=== PATIENT | male | born 1945 | race Caucasian/White ===

== ENCOUNTER 2016-09-13 10:18 | Inpatient (IN) ==
[2016-09-13] MEDS ORDERED: HEPARIN IV PRN (10:38)
[2016-09-13] MEDS ORDERED: NS 2,000 ML MISC PRN (10:38)
[2016-09-13] MEDS ORDERED: TIGHT: 0.2 ML/HR MISC PRN (10:38)
[2016-09-13] MEDS ORDERED: APRESOLINE IV PRN (11:51)
[2016-09-13] MEDS ORDERED: NEXIUM PO PRN (11:52)
[2016-09-13] MEDS ORDERED: SUBCUTANEOUS INSULIN PUMP SUBQ SCH (12:00)
[2016-09-13] MEDS ORDERED: HEPARIN ONE (12:22)
[2016-09-13] MEDS ORDERED: NS 2,000 ML ONE (12:22)
[2016-09-13] MEDS ORDERED: NORCO-10 ONE (15:18)
[2016-09-13] MEDS: NORCO-10 PO PRN ×2 (15:20→23:44)
--- NOTE | 2016-09-13 15:34 | CONSULTATION ---
DATE OF CONSULTATION: 09/13/2016 REASON FOR CONSULTATION: Assistance with management. HISTORY OF PRESENT ILLNESS: Mr. Malik is a 71-year-old man who is followed by Dr. Phan. He has diabetes, hypertension, end stage kidney disease, obesity, history of nephrotic syndrome. He has recently had a peritoneal dialysis catheter placed and is starting his training. He came to see Dr. Phan today with myalgias, weakness, fatigue, shortness of breath in prostration. He was admitted to the hospital with a presumed viral syndrome. We will continue his dialysis while he is in the hospital. PAST MEDICAL HISTORY: Diabetes, obesity, hypertension, gout, hyperlipidemia. HOME MEDICATIONS: Allopurinol, aspirin, atorvastatin, esomeprazole, hydralazine, hydrocodone, niacin, insulin, prednisone. ALLERGIES: Losartan. SOCIAL HISTORY: He is and lives with his in the [facility]. FAMILY HISTORY: Noncontributory. REVIEW OF SYSTEMS: Noncontributory. PHYSICAL EXAMINATION: Blood pressure is 146/71, heart rate 59, respirations 23, afebrile. General: He is an elderly man lying on his left side, in no distress. Skin is warm and dry. Conjunctivae are pink. Neck veins are not distended. Heart is regular. Lungs have equal breath sounds, no crackles. Abdomen is soft, nontender. Bowel sounds are present. Extremities have 2+ edema. No clubbing or cyanosis. IMPRESSION: 1. End stage kidney disease. We will perform his routine hemodialysis today to address his volume status, 2 potassium bath. Reportedly hyperkalemic in Dr. Phan's office. 2. Hypertension. He is on his routine home medications. We will reassess after his volume status is improved. cc: MD Tian Rider MD
[2016-09-13 16:59] LABS: ALBUMIN 3.1 g/dL (3.5-5.0); CALCIUM 8.3 mg/dL (8.8-10.2); POTASSIUM 4.5 mmol/L (3.5-5.1)
[2016-09-13] MEDS ORDERED: CATAPRES PO ONE (17:15)
[2016-09-13] MEDS ORDERED: CATAPRES PO PRN (18:31)
[2016-09-13] MEDS: APRESOLINE PO SCH ×2 (18:36→18:40)
[2016-09-13] MEDS: HUMULIN R SUBQ SCH ×2 (18:41→22:38)
[2016-09-13] MEDS ORDERED: PATIENT'S OWN MED PO SCH (21:00)
[2016-09-13] MEDS: BYSTOLIC PO SCH (22:35)
[2016-09-13] MEDS: LIPITOR PO SCH (22:35)
[2016-09-14] MEDS ORDERED: CATAPRES PO ONE (05:44)
[2016-09-14] MEDS: ZOFRAN PO PRN ×2 (05:51→11:44)
[2016-09-14] MEDS: NORCO-10 PO PRN ×3 (05:54→16:55)
[2016-09-14] MEDS: HUMULIN R SUBQ SCH ×4 (06:27→21:50)
--- NOTE | 2016-09-14 06:27 | HISTORY AND PHYSICAL ---
CHIEF COMPLAINT: Not feeling well, flu-like symptoms since Friday. HISTORY OF PRESENT ILLNESS: He is a 70-year-old, white gentleman, with a known history of end- stage kidney disease on hemodialysis in [place] by Dr. Cisneros. Apparently he skipped dialysis on Friday after 1 hour. He is feeling bad. He came to my office today with dyspnea on exertion, PND, orthopnea or cough. No fever. Blood pressure is so high. Flu screening was negative. Chest x-ray revealed congestive heart failure with bilateral pleural effusions. Potassium of 7. Elevation of BUN and creatinine. He is also slowly trying to swap the dialysis through the CAPD. I discussed this with Dr. Stanford and he has been admitted to the hospital for dialysis for hyperkalemia, CHF and to control the blood pressure. Patient is refusing IV access and as a result hospital admission was warranted. He denies any chest pain. PAST MEDICAL HISTORY: Right bundle branch block, kidney stones, end-stage kidney disease on dialysis, type 2 diabetes on pump, hypertension, temporal arteritis, gout, hyperlipidemia, prostate cancer, sleep apnea. PAST SURGICAL HISTORY: DNS repair, melanoma excision from the neck, status post lithotripsy, radical prostatectomy, right rotator cuff repair, right carpal tunnel syndrome, right big toe partial amputation, hammertoe repair of the left foot, left cataract surgery, AV fistula on the right forearm, also had AV fistula in the left arm, also had a tunnel catheter on the left side, also had a CAPD catheter, right carotid surgery. MEDICATIONS: Prednisone 10 mg daily, Nexium 40 daily, Niaspan 1000 mg daily, gabapentin 300 daily, aspirin 81 mg daily, allopurinol 300 daily, subcutaneous insulin pump, vitamin D 50,000 once a week, Lipitor 40 daily, Bystolic 40 mg b.i.d., hydralazine 100 t.i.d., loratadine 10 daily. ALLERGIES: Not known. SOCIAL HISTORY: with 3 children. Living in [place]. No smoking. No alcohol. Retired. FAMILY HISTORY: Father of heart attack at 76. Mom 90 years old. HEALTH MAINTENANCE: Flu vaccine 2015, tetanus 2015, pneumonia 2010, colonoscopy 2012. REVIEW OF SYSTEMS: HEENT: No headache. No vision problem. No earache. No sore throat. Coughing. Neck: No goiter. No lymphadenopathy. Right carotid surgery done. He also had parotid swelling that is improving. Cardiopulmonary: Cough, shortness of breath, wheezing. No chest pain. No swelling of feet. Gastrointestinal: No nausea, vomiting, abdominal pain. Genitourinary: No history of hesitancy, frequency, dysuria. Musculoskeletal: No back pain. Skin: No skin rashes. Neurologic: No focal symptoms or weakness. EXAMINATION: Vital Signs: Afebrile. Blood pressure 240/70, pulse 59, 6 feet tall, 233 pounds. HEENT: Atraumatic, normocephalic. Pupils equal and reactive to light. TMs are normal. Slight right parotid swelling noted. Neck: Supple. No lymphadenopathy. Status post right carotid surgery. Chest: Clear to auscultation. Heart: Sounds are regular. Abdomen: Belly is soft, nontender. CAPD catheter present. Tunnel catheter present on the left side of the chest. Rectal: Deferred. Extremities: No peripheral edema or cyanosis. Neurologic Examination: No obvious deficits. INVESTIGATIONS: In my office CBC is normal, SMA 7, potassium 6.8, BUN 6, creatinine 8.6. Chest x-ray: Bilateral pleural effusion. ASSESSMENT AND PLAN: 1. A 71-year-old white gentleman admitted to the hospital basically for congestive heart failure, hypertension due to skipping the dialysis. Plan is emergency dialysis for congestive heart failure as well as hyperkalemia. Dr. Stanford consulted. 2. Hypertension, not able to control. Continue on hydralazine 100 p.o. t.i.d. and clonidine as needed. 3. Temporal arteritis. Check the sedimentation rate. Increase the prednisone to 10 mg daily. If it is high, we will give a loading dose of steroids. 4. Gout, on allopurinol. 5. Hyperlipidemia, on Lipitor. 6. Acid reflux disease, on Nexium. 7. Hyperlipidemia, on niacin and Lipitor. 8. Type 2 diabetes, on insulin pump. Follow up on sliding scale. 9. Repeat chest x-ray and laboratory workup. 10. We will follow up. cc: Tian Phan MD
[2016-09-14 07:37] LABS: MANUAL DIFF NEEDED? NO
[2016-09-14 07:55] LABS: BASO% 0.6 % (0.0-0.8); EOS# 0.27 X1000 (0.0-0.7); EOS% 2.8 % (0.0-10.0); HEMATOCRIT 29.7 % (42.0-52.0); HEMOGLOBIN 9.8 g/dL (14.0-18.0); IMM GRAN# 0.06 X1000 (0.0-0.04); IMM GRAN% 0.6 % (0.0-0.5); LYMPH# 1.95 X1000 (1.2-3.4); LYMPH% 20.3 % (20.5-51.1); MCH 32.1 PG (27-31); MCV 97.4 FL (81-99); MONO# 0.64 X1000 (0.11-0.59); MONO% 6.7 % (1.7-9.3); MPV 9.9 FL (7.4-10.4); PLT 285 X1000 (130-400); RBC 3.05 XMIL (4.7-6.1)
[2016-09-14 08:07] LABS: POTASSIUM 5.4 mmol/L (3.5-5.1)
[2016-09-14 08:16] LABS: HEMOGLOBIN A1C 9.4 % (4.8-6.0)
[2016-09-14] MEDS ORDERED: PREDNISONE PO SCH (09:00)
[2016-09-14 09:04] LABS: SED RATE 59 mm/hr (0-15)
[2016-09-14] MEDS ORDERED: NORVASC PO ONE (09:21)
--- NOTE | 2016-09-14 09:22 | Diag Imaging Result Document ---
PROCEDURE NAME: CHEST-1 VIEW - 09/14/2016 PORTABLE CHEST X-RAY: COMPARISON: 12/09/2015. FINDINGS: Stable left dialysis catheter. Stable retrocardiac opacity obscuring the left hemidiaphragm. No new infiltrates. Heart size and pulmonary vascularity are normal. IMPRESSION: No change from prior.
[2016-09-14] MEDS ORDERED: CATAPRES PO PRN (09:30)
[2016-09-14] MEDS: ZYLOPRIM PO SCH (09:30)
[2016-09-14] MEDS: BYSTOLIC PO SCH ×2 (09:30→21:49)
[2016-09-14] MEDS: APRESOLINE PO SCH ×4 (09:30→19:12)
[2016-09-14] MEDS: ASPIRIN EC PO SCH (09:31)
[2016-09-14] MEDS: NIASPAN PO SCH (09:31)
--- NOTE | 2016-09-14 11:23 | PROGRESS NOTE ---
DATE: 09/14/2016 SUBJECTIVE: The patient complains of pronounced headache and some nausea. He is scheduled for dialysis per Dr. Stanford later today. OBJECTIVE: Afebrile, pulse 82, blood pressure 230/60, O2 saturation on room air 97% to 99%. Cardiovascular: Regular rate and rhythm. Lungs: CTA. Extremities: No calf tenderness, cords or edema. DIAGNOSTIC DATA: Labs show sodium 135, potassium 5.4, chloride 96, CO2 of 24, BUN of 48, creatinine 0.7, glucose 132 and ranging 84 to 316 so far during the hospitalization. Calcium is 8.0. ProBNP is greater than 35,000. White count is 9.6, hemoglobin 9.8, platelets 285, neutrophils 69, lymphocytes 20. ASSESSMENT: 1. Congestive heart failure/fluid overload related to the patient skipping his dialysis. 2. Uncontrolled hypertension. 3. Temporal arteritis with sedimentation rate in the 59 range. 4. Gout. 5. Hyperlipidemia. 6. Gastroesophageal reflux disease. 7. Insulin-dependent diabetes mellitus on insulin pump. 8. End stage renal disease, on hemodialysis per Dr. Stanford. PLAN: He is on Bystolic at 10 mg b.i.d. and hydralazine 100 mg t.i.d. We will continue those and add scheduled clonidine and add Norvasc at 5 mg daily. Consideration for nitroglycerin if not improved later today in regard to BP. We will adjust his prednisone from 10 to 20 mg daily, monitoring his blood sugars closely with SSI as required. Dr. Stanford is handling his renal dialysis. We will follow. cc: MD Tian Alvarez MD
[2016-09-14] MEDS ORDERED: EPOGEN SUBQ ONE (14:10)
--- NOTE | 2016-09-14 14:31 | PROGRESS NOTE ---
DATE: 09/14/2016 SUBJECTIVE: He has had nausea and vomiting today. No diarrhea. Fever is improved. OBJECTIVE: Vital Signs: Blood pressure 230/60, heart rate 82, respirations 16, afebrile. Generally: He is an elderly man, sitting erect, no distress. Skin: Warm and dry. HEENT: Conjunctivae are pink. Neck: Neck veins are not distended. Trachea is midline. Heart: Regular without gallops. Lungs: Have equal breath sounds. No crackles or wheezes. Abdomen: Soft, nontender. Bowel sounds are present. Extremities: Have trace edema. No clubbing or cyanosis. LABORATORY DATA: Sodium 135, potassium 5.4, chloride 96, bicarbonate 24, BUN 48, creatinine 4.7. IMPRESSION: 1. End-stage kidney disease. Appears euvolemic. No indications for dialysis. 2. Electrolytes: Potassium is mildly elevated. Observe. 3. Acid-base in target. 4. Anemia. Hemoglobin is below target. We will check iron stores. We will give 1 dose of erythropoietin. cc: MD Tian Rider MD
[2016-09-14] MEDS: COMPAZINE PO PRN (16:55)
[2016-09-14 18:37] LABS: BASO% 0.3 % (0.0-0.8); HEMATOCRIT 34.4 % (42.0-52.0); HEMOGLOBIN 11.4 g/dL (14.0-18.0); IMM GRAN# 0.05 X1000 (0.0-0.04); IMM GRAN% 0.5 % (0.0-0.5); LYMPH# 0.68 X1000 (1.2-3.4); MANUAL DIFF NEEDED? YES; MCH 32.1 PG (27-31); MCHC 33.1 g/dL (33-37); MCV 96.9 FL (81-99); MONO# 0.08 X1000 (0.11-0.59); MONO% 0.8 % (1.7-9.3); MPV 9.6 FL (7.4-10.4); NEUT% 91.4 % (42.2-75.2); PLT 351 X1000 (130-400); RBC 3.55 XMIL (4.7-6.1)
[2016-09-14 18:46] LABS: LYMPHS 5 % (21-51); MONO 1 % (1-9)
[2016-09-14 18:53] LABS: ALBUMIN 3.4 g/dL (3.5-5.0); CALCIUM 8.8 mg/dL (8.8-10.2); POTASSIUM 6.2 mmol/L (3.5-5.1); TOTAL BILIRUBIN 0.25 mg/dL (0.20-1.00); TOTAL PROTEIN 6.3 g/dL (6.3-8.3)
[2016-09-14] MEDS ORDERED: KAYEXALATE PR ONE (19:01)
[2016-09-14] MEDS: LIPITOR PO SCH (21:49)
[2016-09-15] MEDS: HUMULIN R SUBQ SCH ×4 (06:10→21:11)
[2016-09-15 07:06] LABS: MANUAL DIFF NEEDED? NO
[2016-09-15 07:34] LABS: BASO% 0.4 % (0.0-0.8); EOS# 0.08 X1000 (0.0-0.7); EOS% 1.1 % (0.0-10.0); HEMATOCRIT 28.4 % (42.0-52.0); HEMOGLOBIN 9.3 g/dL (14.0-18.0); IMM GRAN# 0.02 X1000 (0.0-0.04); IMM GRAN% 0.3 % (0.0-0.5); LYMPH# 1.75 X1000 (1.2-3.4); LYMPH% 24.9 % (20.5-51.1); MCH 31.7 PG (27-31); MCHC 32.7 g/dL (33-37); MCV 96.9 FL (81-99); MONO# 0.39 X1000 (0.11-0.59); MONO% 5.5 % (1.7-9.3); MPV 9.9 FL (7.4-10.4); NEUT% 67.8 % (42.2-75.2); PLT 269 X1000 (130-400); RBC 2.93 XMIL (4.7-6.1)
[2016-09-15 07:44] LABS: CALCIUM 8.4 mg/dL (8.8-10.2); POTASSIUM 5.5 mmol/L (3.5-5.1)
[2016-09-15 07:55] LABS: FERRITIN 733 ng/mL (30-400)
[2016-09-15] MEDS ORDERED: PREDNISONE PO SCH (09:00)
[2016-09-15] MEDS: NIASPAN PO SCH (09:55)
[2016-09-15] MEDS: ASPIRIN EC PO SCH (09:55)
[2016-09-15] MEDS: NORVASC PO SCH (09:55)
[2016-09-15] MEDS: APRESOLINE PO SCH ×3 (09:55→21:10)
[2016-09-15] MEDS: PREDNISONE PO SCH (09:55)
[2016-09-15] MEDS: BYSTOLIC PO SCH ×2 (09:55→21:10)
[2016-09-15] MEDS: ZYLOPRIM PO SCH (09:55)
--- NOTE | 2016-09-15 10:08 | PROGRESS NOTE ---
DATE: 09/15/2016 SUBJECTIVE: The patient is doing better today. He had prominent nausea and vomiting and some abdominal pain yesterday and seemed to respond to Kayexalate rectally. Again, feeling better today. No significant abdominal pain. No nausea. OBJECTIVE: Vital Signs: Afebrile. Blood pressure 184/41, pulse 64, O2 saturation room air 95- 97%. CV: RRR. Lungs: CTA. Abdomen: Protuberant, soft. No pinpoint tenderness. Extremities: No calf tenderness, cords, or edema. Labs: Show a white count of 7, hemoglobin of 9.3, platelets 269,000. Sodium 135, potassium 5.5 today down from 6.2 last evening after Kayexalate, CO2 23, BUN 57, creatinine 5.6. Iron 104, TIBC 155, ferritin 733. LFTs last evening okay. Amylase and lipase okay. B12 high at 902, folate 18.7. ASSESSMENT: 1. Nausea and vomiting, thought related to hyperkalemia, improved after Kayexalate x1. 2. End-stage renal disease, on hemodialysis on Mondays, Wednesdays, and Fridays. 3. Anemia of chronic disease, treated with erythropoietin per Dr. Stanford. 4. Hypertension. 5. Temporal arteritis. 6. Gout. 7. Hyperlipidemia. 8. Gastroesophageal reflux disease. 9. Insulin-dependent diabetes mellitus, on an insulin pump. PLAN: Continue antihypertensives to include clonidine, Bystolic, Norvasc. We will monitor the 5.5 potassium today but if that worsens or if symptoms worsen, would repeat the Kayexalate. He is scheduled for his next dialysis tomorrow per Dr. Stanford. We have bumped his prednisone up from 10 to 20 mg daily due to elevated sedimentation rate and his temporal arteritis. Headaches were not mentioned today so that is a good sign. Continue blood sugar monitoring and SSI. cc: MD Tian Alvarez MD
--- NOTE | 2016-09-15 11:50 | Diag Imaging Result Document ---
PROCEDURE NAME: FLAT/UPRIGHT ABD/1 VIEW CHEST - 09/14/2016 FRONTAL CHEST WITH 2 VIEWS OF THE ABDOMEN AT 1740 HOURS: COMPARISON: 0500 hours. FINDINGS: Stable left dialysis catheter in good position. Stable cardiomegaly. Pulmonary vascularity is normal. There is a small left basilar pleural effusion. There is apparent peritoneal dialysis catheter tubing coiled in the pelvis. No bowel obstruction or free air. IMPRESSION: 1. Mild cardiomegaly. 2. Stable small left basilar pleural effusion. 3. No acute abnormality in the abdomen.
[2016-09-15] MEDS: LIPITOR PO SCH (21:10)
[2016-09-16] MEDS: COMPAZINE PO PRN (00:04)
[2016-09-16] MEDS ORDERED: KAYEXALATE PR ONE (00:52)
--- NOTE | 2016-09-16 05:58 | EKG Report ---
Test Performed on : 09/14/2016 05:51:36 AM Test Reason : cp Blood Pressure : / mmHG Vent. Rate : 071 BPM Atrial Rate : 071 BPM P-R Int : 204 ms QRS Dur : 150 ms QT Int : 466 ms P-R-T Axes : 039 129 016 degrees QTc Int : 506 ms Normal sinus rhythm. with sinus arrhythmia. Indeterminate axis Right bundle branch block Abnormal ECG When compared with ECG of 14-MAR-2016 08:23, ND interval has decreased Confirmed by Treasure GUTIERREZ, Piyush Millan ([id number]) on 09/16/2016 7:46:06 PM
[2016-09-16] MEDS: HUMULIN R SUBQ SCH ×4 (06:31→22:54)
[2016-09-16 06:38] LABS: MANUAL DIFF NEEDED? NO
[2016-09-16 07:09] LABS: BASO% 0.3 % (0.0-0.8); EOS# 0.01 X1000 (0.0-0.7); EOS% 0.1 % (0.0-10.0); HEMATOCRIT 28.2 % (42.0-52.0); HEMOGLOBIN 9.1 g/dL (14.0-18.0); IMM GRAN# 0.07 X1000 (0.0-0.04); IMM GRAN% 0.8 % (0.0-0.5); LYMPH# 1.84 X1000 (1.2-3.4); LYMPH% 21.2 % (20.5-51.1); MCH 31.7 PG (27-31); MCHC 32.3 g/dL (33-37); MCV 98.3 FL (81-99); MONO# 0.44 X1000 (0.11-0.59); MONO% 5.1 % (1.7-9.3); NEUT% 72.5 % (42.2-75.2); PLT 261 X1000 (130-400); RBC 2.87 XMIL (4.7-6.1)
[2016-09-16 07:46] LABS: CALCIUM 8.4 mg/dL (8.8-10.2)
[2016-09-16] MEDS ORDERED: NS 2,000 ML MISC PRN (07:48)
[2016-09-16] MEDS ORDERED: HEPARIN IV PRN (07:48)
[2016-09-16] MEDS ORDERED: TIGHT: 0.2 ML/HR MISC PRN (07:48)
[2016-09-16] MEDS ORDERED: HEPARIN ONE (07:59)
[2016-09-16] MEDS ORDERED: NS 2,000 ML ONE (07:59)
--- NOTE | 2016-09-16 10:56 | PROGRESS NOTE ---
DATE: 09/16/2016 SUBJECTIVE: Patient is sitting up in a chair, undergoing hemodialysis. He states that he began having a headache, and nausea and vomiting again last night. Currently, he is asymptomatic. OBJECTIVE: Vital Signs: Temperature 98.4 degrees, pulse 61, respiratory rate 16, blood pressure 156/38. Intake 480 mL. Output 480 mL. Physical Examination: General: Elderly gentleman sitting up in a chair, undergoing hemodialysis. He is in no acute distress. HEENT: Normocephalic, atraumatic. His oral mucosa is moist. Neck: Supple. No JVD. Cardiovascular: Regular rate and rhythm. There is no murmur or gallop appreciated. Pulmonary: He has equal excursion. He is clear bilaterally. Abdomen: Soft with positive bowel sounds. : Not inspected. He has minimal void with hemodialysis assist. Extremities: He has no clubbing, cyanosis, or edema. Integumentary: Skin is warm and dry without rash or lesion. He has a tunneled dialysis catheter noted in the right upper neck. Insertion site clean, dry, and intact. Lab Data: WBC of 8.6, hemoglobin 9.1. Sodium yesterday 135, potassium 5.5, CO2 23, BUN 57, creatinine 5.6, calcium 8.4. ASSESSMENT AND PLAN: 1. End-stage renal disease management. He is on his routine dialysis today. He is on a 2 K bath/UF to dry weight/3.5 hour treatment. 2. Electrolytes, acid-base balance, anemia. These are stable. Again, see above for plan. 3. Anemia. He has been given EPO. Continue to monitor. 4. Nausea and vomiting. Followed by primary. Seen, data reviewed, discussed with Srini Peraza on 09/16/16. I agree with the above assessment and plan of care. rg Dictated by EULALIO Goldberg for Arpan Stanford MD cc: MD Tian Rider MD MTDD
[2016-09-16 11:27] LABS: HEPATITIS PROFILE ACUTE SEE COMMENTS
[2016-09-16] MEDS: APRESOLINE PO SCH ×3 (13:00→17:22)
[2016-09-16] MEDS: NORVASC PO SCH (13:00)
[2016-09-16] MEDS: ASPIRIN EC PO SCH (13:00)
[2016-09-16] MEDS: ZYLOPRIM PO SCH (13:00)
[2016-09-16] MEDS: NIASPAN PO SCH (13:01)
[2016-09-16] MEDS: BYSTOLIC PO SCH ×2 (13:01→20:03)
[2016-09-16] MEDS: PREDNISONE PO SCH (13:01)
[2016-09-16] MEDS ORDERED: SOLU-MEDROL IM ONE (19:17)
[2016-09-16] MEDS ORDERED: KAYEXALATE PO ONE (19:19)
[2016-09-16] MEDS: NORCO-10 PO PRN (20:02)
[2016-09-16] MEDS: LIPITOR PO SCH (20:03)
--- NOTE | 2016-09-16 22:59 | PROGRESS NOTE ---
DATE: 09/16/2016 SUBJECTIVE: Interval history was reviewed. The patient refusing for an IV access. Blood pressures are running high. He also has a high potassium. Complains of headache and nausea. REVIEW OF SYSTEMS: No vision problem. No claudication symptoms, other than muscles of mastication.Neck: No goiter. No lymphadenopathy. Cardiopulmonary: No chest pain. Coughing when she lies down. No paroxysmal nocturnal dyspnea, no orthopnea, no swelling of feet. Gastrointestinal: No nausea, vomiting, or abdominal pain. He had a peritoneal catheter. PAST MEDICAL HISTORY: Were reviewed. PAST SURGICAL HISTORY: Were reviewed. MEDICINES: Were reviewed. PHYSICAL EXAMINATION: Vital Signs: Afebrile, blood pressure is 199/58, weight is 232 pounds. Patient was examined at dialysis machine. HEENT Examination: Within normal limits. Neck: Supple. No lymphadenopathy. Chest: Bilateral air entry. Cardiovascular: Heart sounds are regular. Abdomen: Belly is soft, nontender. Good bowel sounds. Extremities: No peripheral edema. INVESTIGATIONS: White cell count 8.6, hematocrit 28, platelets 261,000. SMA-7: Sodium 136, potassium 6.0, chloride 98, BUN 70, creatinine 6.8. Glucose 277. A1c 9.4. Iron 104. Pro-B-type natriuretic peptide 35,000. Sedimentation rate was 59. B12 9O2. Folate is normal. Hepatitis panel is negative. ASSESSMENT AND PLAN: 1. Congestive heart failure due to hypertension and heart disease, with a bilateral pleural effusion, improving after the dialysis. 2. Hypertension. Optimize the treatment with hydralazine, Norvasc, and Bystolic. Not able to tolerate HECTOR inhibitors, ARB due to hyperkalemia. 3. Headache and nausea, elevated sedimentation rate. Increased the prednisone. 4. Type 2 diabetes, on insulin pump. 5. Hyperlipidemia, on Lipitor. 6. Gout, on allopurinol. 7. Continue on the Kayexalate enema for hyperkalemia. If the symptoms do not improve, consider echocardiography and further workup. 8. End-stage renal disease on hemodialysis with a tunnel catheter on the left side. Patient is slowly trying to into CAPD down the line. cc: Tian Phan MD
[2016-09-16] MEDS: ZOFRAN PO PRN (23:20)
[2016-09-17] MEDS: NORCO-10 PO PRN (01:21)
[2016-09-17] MEDS: HUMULIN R SUBQ SCH (06:40)
[2016-09-17 07:40] VITALS: BP 174/57
[2016-09-17] MEDS: NORVASC PO SCH (08:45)
[2016-09-17] MEDS: NIASPAN PO SCH (08:45)
[2016-09-17] MEDS: APRESOLINE PO SCH (08:45)
[2016-09-17] MEDS: BYSTOLIC PO SCH (08:45)
[2016-09-17] MEDS: ASPIRIN EC PO SCH (08:46)
[2016-09-17] MEDS: PREDNISONE PO SCH (08:46)
[2016-09-17] MEDS ORDERED: ZYLOPRIM PO SCH (09:00)
--- NOTE | 2016-09-17 09:03 | PROGRESS NOTE ---
DATE: 09/17/2016 SUBJECTIVE: He is feeling well today. He anticipates discharge. No shortness of breath, nausea, fever, etc. OBJECTIVE: Vital Signs: Blood pressure 174/57, heart rate 65, respirations 20, afebrile. Intake 600 mL; output 1.5 L. General: On physical exam, no acute distress. Skin: Warm and dry. Eyes: Conjunctivae are pink. Neck: Neck veins are not distended. Heart: Regular. Lungs: Have equal breath sounds. No crackles. Abdomen: Soft and obese and nontender. Bowel sounds are present. Extremities: Have no edema, clubbing, or cyanosis. LABORATORY DATA: None today. IMPRESSION: 1. End-stage kidney disease. He is euvolemic. His next scheduled dialysis is tomorrow. 2. Electrolytes: He had moderate hyperkalemia yesterday, but he has received dialysis. 3. Acute febrile illness. Resolved. DISPOSITION: Okay for discharge. cc: MD Tian Rider MD
--- NOTE | 2016-09-17 22:38 | DISCHARGE SUMMARY ---
ADMISSION DATE: 09/13/2016 DISCHARGE DATE: 09/17/2016 DISCHARGING DIAGNOSES: 1. Congestive heart failure due to diastolic dysfunction with hypertension, heart disease. 2. Right bundle branch block. 3. Uncontrolled hypertension. 4. Uncontrolled diabetes A1c 9.3. 5. Noncompliance. 6. Headache due to relapse of temporal arteritis. 7. Hyperkalemia due to end-stage kidney disease. 8. History of kidney stones. 9. Type 2 diabetes. 10. Gout. 11. Hyperlipidemia. 12. Prostate cancer. 13. Sleep apnea. 14. Right carotid endarterectomy. 15. Chronic Right parotitis resolving. CONSULTANTS: Arpan Stanford M.D. PROCEDURES: Inpatient hemodialysis. BRIEF HISTORY: Please see the H and P that was done on 09/13/2016. In brief, he is a 70-year- old, white gentleman admitted to the hospital with shortness of breath, cough, wheezing, headache, nausea associated with pleural effusions on x-ray, elevated proBNP and elevated potassium. He is not maintaining his diabetes and hypertension despite multiple attempts. I discussed with Dr. Stanford who is assisting with dialysis for volume overload as well as hyperkalemia. HOSPITAL COURSE: 1. He was admitted to Telemetry. On subsequent workup, cardiac enzymes are normal, proBNP was high. Follow-up dialysis if symptoms are improving. 2. Headache and nausea. Sedimentation rate was high. He was given Solu-Medrol and increased the prednisone. 3. Poorly controlled diabetes on insulin pump. A1c 9.3. Treatment was optimized. 4. Uncontrolled hypertension. He has been on hydralazine 100 t.i.d., Norvasc 10 mg daily, Bystolic 40 mg p.o. b.i.d., along with clonidine as needed. 5. He is refusing IV access on the right side due to poor veins. After dialysis his symptoms are improved. For hyperkalemia he was given Kayexalate. 6. Laboratories. CBC: White cell count 8.6, hematocrit 28, platelets 261,000. SMA 7. Sodium 136, potassium 6, BUN 70, creatinine 6.8, glucose 180, A1c 9.4. proBNP 68002. 7. At the time of discharge, patient is stable and he is slowly trying to swap the dialysis for the CAPD. DISCHARGE INSTRUCTIONS: 1. Prednisone 20 mg daily for 10 days. 2. Kayexalate 15 g as needed for hyperkalemia. 3. Clonidine 0.1 t.i.d. as needed for high blood pressure more than 160. 4. Amlodipine 10 daily. 5. Nexium 40 daily. 6. Hydralazine 100 t.i.d. 7. Loratadine 10 daily. 8. Bystolic 40 p.o. b.i.d. 9. Lipitor 40 daily. 10. Insulin pump as directed. 11. Allopurinol 100 daily. 12. Aspirin 81 daily. 13. Niaspan 1000 p.o. t.i.d. 14. Follow up with Dr. Siddiqi for maintenance dialysis in [place] as well as in my office for hypertension and diabetes. cc: MD Arpan Jones MD MTDD
== END 2016-09-17 10:02 | disposition home or self-care (01) ==
LOC: INTOOBSV 10:18 → OBSVTOIN 10:18 → DIRADM 10:18 → 3N 10:44
PROVIDERS: ADMIT Internal Medicine; ATTEND Internal Medicine